=== PATIENT | female | born 1965 ===

== ENCOUNTER 2018-11-06 07:53 | Day surgery (SDC) | payer OTHER ==
[~2018-11-06 07:53] MED LIST: BIRTH CONTROL; PROM25 PO
--- NOTE | 2018-11-06 08:37 | NUR ---
Ambulatory in Day Surgery Patient confirms NPO status and agrees with scheduled surgery. STATES HAS NOT EATEN SINCE YESTERDAY FOR LUNCH/ Patient States Post-Procedure ride home has been arranged.
--- NOTE | 2018-11-06 09:30 | NUR ---
PT IS DIFFICULT VENIPUNCTURE. IV PLACED TO LEFT UPPER ARM BY MICKIE CORONA RN. HR 54, BP 142/82, RR 16, SPO2 100% ON RA. WHEN IV FLUSHED PRIOR TO CT SCAN, PT REPORTS FEELING "DIZZY." DIZZINESS RESOLVED AFTER SEVERAL MINUTES.
--- NOTE | 2018-11-06 09:45 | NUR ---
NITRO S.L. X 1 GIVEN. KEYSHA-MANPREET ATTEMPTED TO INFUSE CONTRAST. IV NOT PATENT. DISCONTINUED WITH CANULA INTACT. VS AFTER NITRO-HR 52, BP 140/81, RR 16, SPO2 100% ON RA.
--- NOTE | 2018-11-06 09:50 | NUR ---
DR. SADLER NOTIFIED OF MULTIPLE ATTEMPTS TO GAIN IV ACCESS AND THE FACT THAT PT IV NO LONGER PATENT. TEST ABORTED. DR. DAVALOS OFFICE NOTIFIED. DR. DAVALOS IS OUT OF TOWN UNTIL 11/12/18. DR. DAVALOS OFFICE TO CONTACT PT TO RESCHEDULE CT ANGIO. PT INSTRUCTED TO DRINK LOTS OF FLUIDS TODAY AND TO SEEK MEDICAL ATTENTION IF SHE CONTINUES TO FEEL DIZZY, HAVE CHEST PAINS, OR PALPITATIONS.
--- NOTE | 2018-11-10 06:54 | NUR ---
EDITED PROCEDURE FOR PURPOSES OF VERIFICATION.
== END 2018-11-06 10:12 | disposition home or self-care (01) ==
LOC: ORD 07:53 → CT 07:53 → ORD 08:30 → CT 09:00 → ORD 10:12
DX: R07.89 Other chest pain (principal); I10 Essential (primary) hypertension; E78.5 Hyperlipidemia, unspecified; Z79.899 Other long term (current) drug therapy
CPT/HCPCS: 75571

== ENCOUNTER → 2020-02-27 | Outpatient (CLI) | payer OTHER | END | disposition home or self-care (01) | LOC: LAB EV 10:32 → LAB SHORT 10:32 | DX: N39.0 Urinary tract infection, site not specified (principal) | CPT/HCPCS: 87077; 87086; 87186 ==